=== PATIENT | female | born 1990 | race Caucasian/White ===

== ENCOUNTER 2016-06-03 11:05 | Emergency (ER) | payer OTHER ==
[~2016-06-03] VITALS: Ht 175.3 cm; Wt 59.1 kg
[2016-06-03 11:10] VITALS: Ht 175.3 cm; Wt 59.1 kg
[2016-06-03] MEDS ORDERED: ONDANSETRON 4 MG INJ IV STA (12:15)
[2016-06-03] MEDS ORDERED: morphine 4 MG/ML VIAL IV STA (12:15)
[2016-06-03 12:38] LABS: URINE BLOOD (Dip) POC 2+ (NEGATIVE)
--- NOTE | 2016-06-03 12:50 | ERD ---
ER Documentation Chief Complaint Date/Time DATE: 06/03/16 TIME: 12:47 Chief Complaint ABDOMINAL PAIN HPI Is a 26-year-old female who presents the emergency department today complaining of severe abdominal pain that woke her up this morning. Patient states that she was supposed to start her menstrual cycle and gets it every 28 days but she did not get her period today. States that she has much pain that she had nausea. States that she took some [place] pain medication. States she is from [place] and is visiting her friend here at [place]. States this happened to her one time before and she states that something had ruptured in her " female parts". States she feels better since coming to the emergency room. States she has not been sexually active for 6 months. Denies any vaginal bleeding, vaginal discharge or dysuria. ROS All systems reviewed and are negative except as per history of present illness. Medications Home Meds Active Scripts Ondansetron Hcl* (Zofran*) 4 Mg Tablet, 4 MG PO Q6H for NAUSEA AND/OR VOMITING, #30 TAB Prov:CLAUDIA CHILDERS PA-C 06/03/16 Naproxen* (Naprosyn*) 500 Mg Tablet, 500 MG PO BID Y for PAIN AND/OR INFLAMMATION, #30 TAB Prov:CLAUDIA CHILDERS PA-C 06/03/16 Hydrocodone/Acetaminophen (Burlison 5-325 Tablet) 1 Each Tablet, 1 TAB PO Q6H Y for PAIN, #10 TAB Prov:CLAUDIA CHILDERS PA-C 06/03/16 Allergies Allergies: Coded Allergies: No Known Allergy (Unverified , 06/03/16) Physical Exam Vitals Vital Signs Date Time Temp Pulse Resp B/P Pulse Ox O2 Delivery O2 Flow Rate FiO2 06/03/16 11:10 98.2 69 18 118/56 100 Physical Exam Const: No acute distress Head: Atraumatic Eyes: Normal Conjunctiva ENT: Normal External Ears, Nose and Mouth. Neck: Full range of motion..~ No meningismus. Resp: Clear to auscultation bilaterally Cardio: Regular rate and rhythm, no murmurs Abd: Soft, suprapubic tenderness, pelvic tenderness non distended. Normal bowel sounds. No right lower quadrant pain. No tenderness McBurney's. No left lower quadrant pain. Skin: No petechiae or rashes Back: No midline or flank tenderness. No CVA tenderness. Ext: No cyanosis, or edema Neur: Awake and alert Psych: Normal Mood and Affect Results 24 hrs Laboratory Tests Test 06/03/16 12:38 Bedside Urine pH (LAB) 7.0 Bedside Urine Protein (LAB) Negative Bedside Urine Glucose (UA) Negative Bedside Urine Ketones (LAB) Trace Bedside Urine Blood 2+ Bedside Urine Nitrite (LAB) Negative Bedside Urine Leukocyte Esterase (L Negative Current Medications Medications (Trade) Dose Ordered Sig/Collin Route PRN Reason Start Time Stop Time Status Last Admin Dose Admin Morphine Sulfate (morphine) 4 mg ONCE STAT IV 06/03/16 12:15 06/03/16 12:16 Cancel Ondansetron HCl (Zofran Inj) 4 mg ONCE STAT IV 06/03/16 12:15 06/03/16 12:18 DC 06/03/16 12:43 Acetaminophen/ Hydrocodone Bitart (Burlison (5/325)) 1 tab ONCE ONCE PO 06/03/16 13:00 06/03/16 13:01 DC 06/03/16 12:43 DIAGNOSTIC IMAGING REPORT Patient: BRIAN DEL ROSARIO : 1990 Age: 26 Sex: F MR #: [id number] DOS: 06/03/16 0000 Ordering MD: CLAUDIA CHILDERS PA-C Location: [facility] Room/Bed: PROCEDURE: US Pelvis CLINICAL INDICATION: pelvic pain TECHNIQUE: Multiple sonographic images of the pelvis were obtained utilizing a transabdominal and endovaginal technique. The images were reviewed on a PACS workstation. COMPARISON: None. LMP: 06/03/2016 FINDINGS: The uterus measures 6.7 x 3.3 x 4.5 cm. The endometrial echo complex measures 5 mm in thickness. The junctional zone between the endometrium and myometrium is indistinct. No discrete lesion is seen. The right ovary measures 4.9 x 3.9 x 4.4 cm. The left ovary measures 3.7 x 2.4 x 3.0 cm. There is normal vascular flow in both ovaries. There is a 2.0 cm cystic lesion with posterior acoustic enhancement, low level internal echoes and a prominent eccentric hyperechoic component with minimal vascular flow which is nonspecific, but has typical sonographic features of a dermoid cyst. There is a 4.0 cm cystic lesion with low level internal echoes in the right ovary which is likely a hemorrhagic or corpus luteal cyst. It is not associated with significant vascular flow. There is mild pelvic free fluid. IMPRESSION: Complex cystic lesion with a prominent hyperechoic component in the left ovary measuring up to 2 cm is likely a dermoid cyst. 4 cm complex cystic lesion in the right ovary is likely a hemorrhagic or corpus luteal cyst. Follow-up ultrasound in 6-12 weeks is recommended for further evaluation. The junctional zone between the endometrium and myometrium is indistinct, possibly due to adenomyosis. Clinical correlation is recommended. RPTAT: EE Dallas Stevenson Physician Date Time Electronically viewed and signed by Dallas Stevenson Physician on 06/03/2016 13:43 RA/ CC: CLAUDIA CHILDERS PA-C [facility] This a 26-year-old female who presents to the emergency department today complaining of severe pelvic pain. Patient states that this happened her one time in the past when she had something "rupture in her female parts". On physical exam patient had some pelvic pain and suprapubic pain.I did obtain a urine, urine test as well as pelvic ultrasound given the patient has missed her menstrual cycle. UA is negative for infection. There is 2+ blood. Patient is expected to start her menstrual cycle soon. Urine test is negative Pelvic US shows a complex cystic lesion with a prominent hyperechoic component in the left ovary measuring up to 2 cm likely a dermoid cyst. There is a 4 cm complex cystic lesion in the right ovary likely a hemorrhagic or corpus luteal cyst. Follow-up ultrasound in 6-12 weeks is recommended. The junctional zone between the endometrium myometrium is indistinct possibly due to adenomyosis. There is normal vascular flow to both ovaries. Low suspicion for ovarian torsion, tubal ovarian abscess, ectopic . Low suspicion for acute surgical abdomen. Patient symptoms at this time consistent with pelvic pain likely secondary to these ovarian cyst. Patient does have good follow-up back in [place] and does have an [employer]IST[employer] that she has seen and has previously recommended for oral contraceptive pills however patient did not want to take them at that time as she thought that she would have difficulty getting . I have informed the patient and educated her. I did originally order morphine for the patient however she felt that she was feeling better and did not want to be not strong. Patient was given Burlison and Zofran. She will begin a prescription for Burlison, Naprosyn and Zofran. Patient indicated she started her menstrual cycle while here in the emergency department At this time the patient is stable for discharge and outpatient management. Patient should follow up with their PCP in the next 1-2 days. They may return to the emergency department sooner for any persistent or worsening of symptoms. Patient understood and agreed with the plan. Departure Diagnosis: Primary Impression: Pelvic pain Condition: CLAUDIA Cote PA-C Jun 03, 2016 12:50
[2016-06-03] MEDS ORDERED: HYDROCODONE/APAP (5/325) TAB PO ONE (13:00)
--- NOTE | 2016-06-03 13:44 | RADRPT ---
PROCEDURE: US Pelvis CLINICAL INDICATION: pelvic pain TECHNIQUE: Multiple sonographic images of the pelvis were obtained utilizing a transabdominal and endovaginal technique. The images were reviewed on a PACS workstation. COMPARISON: None. LMP: 06/03/2016 FINDINGS: The uterus measures 6.7 x 3.3 x 4.5 cm. The endometrial echo complex measures 5 mm in thickness. T he junctional zone between the endometrium and myometrium is indistinct. No discrete lesion is seen. The right ovary measures 4.9 x 3.9 x 4.4 cm. The left ovary measures 3.7 x 2.4 x 3.0 cm. There is no rmal vascular flow in both ovaries. There is a 2.0 cm cystic lesion with posterior acoustic enhancement, low level internal echoes and a prominent eccentric hyperechoic component with minimal vascular flow which is nonspecific, but has typical sonographic features of a dermoid cyst. There is a 4.0 cm cystic lesion with low level internal echoes in the right ovary which is likely a hemorrhagic or corpus luteal cyst. It is not associated with significant vascular flow. There is mild pelvic free fluid. IMPRESSION: Complex cystic lesion with a prominent hyperechoic component in the left ovary measuring up to 2 cm is likely a dermoid cyst. 4 cm complex cystic lesion in the right ovary is likely a hemorrhagic or c orpus luteal cyst. Follow-up ultrasound in 6-12 weeks is recommended for further evaluation. The junctional zone between the endometrium and myometrium is indistinct, possibly due to adenomyosi s. Clinical correlation is recommended. RPTAT: EE Physician Desire Date Time Electronically viewed and signed by Dallas Stevenson Physician on 06/03/2016 13:43 /
[2016-06-03] MEDS ORDERED: NAPR-260 PO (14:18)
[2016-06-03] MEDS ORDERED: HYDR-906 PO (14:18)
[2016-06-03] MEDS ORDERED: ONDA4TAB8 PO (14:18)
[2016-06-03 14:30] VITALS: BP 108/63; PULSE 72; RESP 16; TEMP 98.6
== END 2016-06-03 14:32 | disposition home or self-care (01) ==
LOC: FTE 11:05
DX: R10.2 Pelvic and perineal pain (principal)
CPT/HCPCS: 76830; 76856; 81003; 96374; 99285; J2405